=== PATIENT | male | born 1950 | race Two or more races ===

== ENCOUNTER 2018-02-08 23:03 | Emergency (ER) | payer OTHER ==
[~2018-02-08] VITALS: Ht 180.3 cm; Wt 63.5 kg
[2018-02-08] MEDS ORDERED: NORVASC10 MG (23:28)
[2018-02-08] MEDS ORDERED: ALTACE10 MG (23:28)
[2018-02-08] MEDS ORDERED: CENTANY AT1 EACH (23:29)
[2018-02-09] MEDS ORDERED: SYNTHROID50 MCG (01:04)
[2018-02-09] MEDS ORDERED: DIPROLENE 0.05%15 GM TOP (01:38)
[2018-02-09] MEDS ORDERED: MEDROL8 MG PO (01:38)
== END 2018-02-09 02:26 | disposition home or self-care (01) ==
LOC: ER 23:03
DX: L20.89 Other atopic dermatitis (principal)

== ENCOUNTER 2018-05-10 01:12 | Emergency (ER) | payer OTHER ==
[~2018-05-10] VITALS: Ht 180.3 cm; Wt 65.8 kg
[~2018-05-10 01:12] MED LIST: ALTACE10 MG; CENTANY AT1 EACH; DIPROLENE 0.05%15 GM TOP; MEDROL8 MG PO; NORVASC10 MG; SYNTHROID50 MCG
[2018-05-10] MEDS ORDERED: PROTONIX40 MG PO (10:03)
[2018-05-10] MEDS ORDERED: CIPRO500 MG PO (10:03)
[2018-05-10] MEDS ORDERED: FLAGYL500MG PO (10:03)
[2018-05-10] MEDS ORDERED: ULTRACET PO (10:03)
== END 2018-05-10 10:41 | disposition home or self-care (01) ==
LOC: ER 01:12
DX: K57.92 Diverticulitis of intestine, part unspecified, without perforation or abscess without bleeding (principal); E03.8 Other specified hypothyroidism; I10 Essential (primary) hypertension